=== PATIENT | female | born 1935 | race Caucasian/White ===

== ENCOUNTER → 2018-08-18 | Outpatient (CLI) | payer MEDICARE, OTHER ==
--- NOTE | 2018-09-02 13:06 | RAD ---
DATE: August 18, 2018 EXAM: MAMMO GAYLA SCREENING BILATERAL HISTORY: Screening study. COMPARISON: None. Previous mammograms are not available. Therefore, this is considered a new baseline study. This study was interpreted with the benefit of Computerized Aided Detection (CAD). 2-D digital mammographic views of both breasts were performed in the CC and MLO projections. 3-D digital tomosynthesis images of both breasts were performed in the CC and MLO projections and reviewed on a computer workstation. FINDINGS: Breast Density: SCATTERED The breast parenchyma shows scattered fibroglandular densities. Breast parenchyma level B.. Bilateral breast nodularity is evident. However, more prominent focal nodular density this is seen within the upper lateral aspect of the right breast. Recommend focal compression views of this area in the CC and MLO projections and a digital 2-D 90 degrees medial lateral view of the right breast for further evaluation. If this finding persists, then right breast sonography may be needed. No clustering of pleomorphic microcalcifications are evident on either side. Benign-appearing axillary lymph nodes are seen bilaterally. IMPRESSION: Prominent nodular density of the right breast. Additional imaging. BI-RADS CATEGORY: 0 INCOMPLETE: NEEDS ADDITIONAL IMAGING EVALUATION AND/OR PRIOR MAMMOGRAMS FOR COMPARISON. RECOMMENDED FOLLOW-UP: ADD ADDITIONAL IMAGING PQRS compliance statement: Patient information was entered into a reminder system with a target due date now for the next mammogram. Mammography is a sensitive method for finding small breast cancers, but it does not detect them all and is not a substitute for careful clinical examination. A negative mammogram does not negate a clinically suspicious finding and should not result in delay in biopsying a clinically suspicious abnormality. "Our facility is accredited by the [employer] Mammography [employer]." The patient's breast density may affect the ability of mammography to detect breast cancer. There are 4 categories of breast density, A, B, C and D. Breast density A means that most of the breast tissue is replaced with adipose tissue and therefore is not dense. Breast density B means that the breast tissue is mildly dense and scattered. Breast density C means that the breast tissue is heterogeneously dense. Breast density D means that the breast tissue is very dense. Breast densities especially C and D may decrease the sensitivity of mammography to detect breast cancer. Therefore, the patient may benefit from 3-D breast mammography (3D breast tomography) as a part of their screening mammogram. Insurance may or may not pay for this additional imaging. The patient's breast density based on today's mammogram is category B.
== END | disposition home or self-care (01) ==
LOC: MAMMO 08:36
PROVIDERS: ATTEND Family Medicine
DX: Z12.31 Encounter for screening mammogram for malignant neoplasm of breast (principal)
CPT/HCPCS: 77063; 77067

== ENCOUNTER → 2018-08-31 | Outpatient (CLI) | payer MEDICARE ==
--- NOTE | 2018-08-31 15:16 | KCIC ---
HAND BILAT 3V History: Polyarthralgia, cannot straighten fingers.. No trauma. Comparison: None are available Three-view left hand Severe destructive changes at the second DIP joint, appear chronic. There is severe loss of the joint with central or marginal erosive change and marginal osteophytes. Moderate degenerative type changes are seen at the third and fifth DIP joints. Mild at the first IP joint. No evidence of aggressive bone destruction.. 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 3 view right hand Severe degenerative changes at the second, third and fifth DIP joints with marginal spurring. Milder degenerative changes at the first IP joint. No aggressive bone destruction or dislocation. IMPRESSION: Degenerative changes, compatible with osteoarthritis, particularly at the DIP joints bilaterally, as well as at the triscaphe of the left wrist. Electronically signed by: Yang Ontiveros MD (08/31/2018 3:12 PM) [facility]
== END | disposition home or self-care (01) ==
LOC: KCIC 14:04
PROVIDERS: ATTEND Internal Medicine Rheumatology
DX: M19.042 Primary osteoarthritis, left hand (principal); M19.041 Primary osteoarthritis, right hand; M25.742 Osteophyte, left hand
CPT/HCPCS: 73130

== ENCOUNTER → 2018-09-16 | Outpatient (CLI) | payer MEDICARE ==
--- NOTE | 2018-09-16 14:25 | RAD ---
DATE: 09/16/2018 EXAM: DIGITAL DIAGNOSTIC RT, BREAST RIGHT HISTORY: Suspicious screening study COMPARISON: 08/18/2018 This study was interpreted with the benefit of Computerized Aided Detection (CAD). Breast Density: SCATTERED The breast parenchyma shows scattered fibroglandular densities. Breast parenchyma level B. FINDINGS: Additional views of the right breast were obtained including spot compression and straight mediolateral views. The fibroglandular pattern in both breasts is somewhat nodular in character. There is more focal nodularity seen posterolaterally in the right breast at approximately 8-9:00 location. Prior outside mammograms dated 10/09/2016, 07/01/2015 and 10/25/2013 are now available for comparison. Similar nodular densities were present in the right breast on the previous studies. Right breast ultrasound, 08/18/2018: A target ultrasound exam of the lateral aspect of the right breast was performed. Normal heterogeneous fibroglandular shadows are present. No mass is identified. IMPRESSION: 1. Stable right mammograms without evidence of malignancy. 2. The targeted ultrasound exam of the lateral right breast reveal no abnormality. BI-RADS CATEGORY: 2 BENIGN FINDING(S) RECOMMENDED FOLLOW-UP: 12M 12 MONTH FOLLOW-UP PQRS compliance statement: Patient information was entered into a reminder system with a target due date for the next mammogram. Mammography is a sensitive method for finding small breast cancers, but it does not detect them all and is not a substitute for careful clinical examination. A negative mammogram does not negate a clinically suspicious finding and should not result in delay in biopsying a clinically suspicious abnormality. "Our facility is accredited by the [employer] Mammography [employer]."
== END | disposition home or self-care (01) ==
LOC: MAMMO 13:00
PROVIDERS: ATTEND Family Medicine
DX: R92.8 Other abnormal and inconclusive findings on diagnostic imaging of breast (principal)
CPT/HCPCS: 76641; 77065

== ENCOUNTER → 2019-08-24 | Outpatient (CLI) | payer MEDICARE ==
--- NOTE | 2019-08-25 11:56 | RAD ---
DATE: August 24, 2019 EXAM: MAMMO GAYLA SCREENING BILATERAL HISTORY: Screening study. COMPARISON: 2016 and 2018 This study was interpreted with the benefit of Computerized Aided Detection (CAD). FINDINGS: Breast Density: SCATTERED The breast parenchyma shows scattered fibroglandular densities. Breast parenchyma level B.. There are no dominant suspicious masses, suspicious microcalcifications or evidence of architectural distortion. Bilateral breast nodularity is stable. IMPRESSION: No mammographic indicators for malignancy. BI-RADS CATEGORY: 2 BENIGN FINDING RECOMMENDED FOLLOW-UP: 12M 12 MONTH FOLLOW-UP PQRS compliance statement: Patient information was entered into a reminder system with a target due date August 25, 2020 for the next mammogram. Mammography is a sensitive method for finding small breast cancers, but it does not detect them all and is not a substitute for careful clinical examination. A negative mammogram does not negate a clinically suspicious finding and should not result in delay in biopsying a clinically suspicious abnormality. "Our facility is accredited by the [employer] Mammography [employer]." The patient's breast density may affect the ability of mammography to detect breast cancer. There are 4 categories of breast density, A, B, C and D. Breast density A means that most of the breast tissue is replaced with adipose tissue and therefore is not dense. Breast density B means that the breast tissue is mildly dense and scattered. Breast density C means that the breast tissue is heterogeneously dense. Breast density D means that the breast tissue is very dense. Breast densities especially C and D may decrease the sensitivity of mammography to detect breast cancer. Therefore, the patient may benefit from 3-D breast mammography (3D breast tomography) as a part of their screening mammogram. Insurance may or may not pay for this additional imaging. The patient's breast density based on today's mammogram is category B.
== END | disposition home or self-care (01) ==
LOC: MAMMO 08:04
PROVIDERS: ATTEND Family Medicine
DX: Z12.31 Encounter for screening mammogram for malignant neoplasm of breast (principal)
CPT/HCPCS: 77063; 77067

== ENCOUNTER → 2020-05-26 | Outpatient (CLI) | payer MEDICARE ==
--- NOTE | 2020-05-26 14:03 | RAD ---
MRI Lumbar Spine without contrast History: Low back pain, left leg radiculopathy Technique: Multiplanar, multi sequential noncontrast MR imaging was performed of the lumbar spine. Comparison: None Findings: There is no edema suggestive of recent compression fracture. There is reversal of the lordotic curvature centered at L1-L2. There is very mild posterior subluxation L2 relative to L3, L3 relative to L4, and L4 relative L5, negligible anterior spondylolisthesis L1-L2. Conus terminates at L1-2. There is advanced degenerative disc disease greatest at L3-4 and L4-5 and also anteriorly at L2-3, to lesser degree at L1-2 and L5-S1. Vertebral body stature is overall maintained. There is mild dextroscoliosis centered near L3. Not included on the axial images, there is buckling of the ligamentum flavum and facet degenerative change at T11-12 contributing to fairly severe bilateral neural foramina compromise greater on the left, overall mild narrowing of the spinal canal. L1-L2: There is mild buckling of the ligamentum flavum and facet hypertrophic change. Neural foramina and the spinal canal are adequate. L2-L3: There is minimal bulge. There is mild buckling of the ligamentum flavum and facet hypertrophic change. There is mild narrowing of the far lateral recesses bilaterally. There is mild narrowing of the left neural foramen, right neural foramen adequate. L3-L4: There is disc osteophyte complex and bulge. There is mild buckling of the ligament flavum. There is moderate right greater than left facet degenerative change. There is fairly severe right and moderate to severe left lateral recess stenosis. There is buhf-sg-xerrqjmg narrowing of the central canal. There is severe bilateral neural foramina compromise by disc osteophyte complex and facets with contact of the exiting L3 nerve roots greater on the left. L4-L5: There is minimal disc osteophyte complex. There is left laminectomy defect. There is moderate buckling of the residual right ligamentum flavum. There is moderate facet hypertrophic change greater on the right. There is fairly severe right lateral recess stenosis at location of the descending right L5 nerve root, mild narrowing of the far left lateral recess. Central canal is adequate. There is severe bilateral neural foramina compromise with contact of the exiting L4 nerve roots bilaterally greater on the right, narrowing by disc osteophyte complex and facets. L5-S1: There is severe facet degenerative change bilaterally somewhat greater on the right. There is mild to moderate buckling of the ligamentum flavum. There is moderate to severe narrowing of the lateral recesses bilaterally at location of the descending S1 nerve roots, mild narrowing of the central canal. There is severe bilateral neural foramina compromise by disc osteophyte complex and facets with impingement of the exiting L5 nerve roots greater on the left. Impression: 1. There is advanced degenerative disc disease at L3-4 and L4-5 and anteriorly at L2-3, to a lesser degree at other levels. 2. There is multilevel significant lateral recess stenosis such as bilaterally at L3-4 and L5-S1 and on the right at L4-5, mild narrowing bilaterally at L2-3. There is contact of the descending nerve roots at multiple levels. 3. There is multilevel neural foramina compromise, severe narrowing bilaterally at T11-12, L3-4, L4-5 and L5-S1. 4. There is multilevel facet degenerative change. There is multilevel abnormal alignment as stated. There is mild lumbar dextroscoliosis. Electronically signed by: Sarthak Lilly MD (05/26/2020 2:00 PM) [id number]
== END | disposition home or self-care (01) ==
LOC: MRI 12:30
PROVIDERS: ATTEND Family Medicine
DX: S33.140A Subluxation of L4/L5 lumbar vertebra, initial encounter (principal); M47.817 Spondylosis without myelopathy or radiculopathy, lumbosacral region; M48.07 Spinal stenosis, lumbosacral region; M47.814 Spondylosis without myelopathy or radiculopathy, thoracic region; X58.XXXA Exposure to other specified factors, initial encounter; Y93.89 Activity, other specified; Y92.89 Other specified places as the place of occurrence of the external cause; Y99.8 Other external cause status
CPT/HCPCS: 72148

== ENCOUNTER → 2020-07-04 | Outpatient (CLI) | payer MEDICARE ==
[~2020-07-04] MED LIST: REGADENOSON 0.4 MG/5 ML DISP.SYRIN. IV ONE
--- NOTE | 2020-07-04 17:31 | CARD ---
MR#: [id number] Date of Study: 07/04/2020 Ordering Physician: RUTHIE VALDEZ, Referring Physician: RUTHIE VALDEZ, Tech: Stephanie Horne APPROVED REPORT EXAM: Two-dimensional and M-mode echocardiogram with Doppler and color Doppler. Other Information Quality : AverageHR: 59bpm INDICATION Dyspnea 2D DIMENSIONS RVDd2.4 (2.9-3.5cm)Left Atrium(2D)2.9 (1.6-4.0cm) IVSd1.0 (0.7-1.1cm)Aortic Root(2D)3.0 (2.0-3.7cm) LVDd5.0 (3.9-5.9cm)LVOT Diameter2.1 (1.8-2.4cm) PWd1.0 (0.7-1.1cm)LVDs3.2 (2.5-4.0cm) FS (%) 34.7 %SV73.8 ml Aortic Valve AoV Peak Andrew.120.2cm/sAoV VTI28.2cm AO Peak GR.5.8mmHgLVOT Peak Andrew.87.3cm/s LVOT VTI 21.98cmAO Mean GR.4mmHg BONY (VMAX)1.28zo3IFT (VTI)2.68cm2 Mitral Valve MV E Msiqnvcz07.8cm/sMV DECEL WXAM547en MV A Wdqmytzj48.2cm/sMV E Mean Gr.2mmHg MV YWP93vfK/A Ratio0.6 MVA (PHT)3.18cm2 TDI E/Lateral E'10.1E/Medial E'9.6 Pulmonary Valve PV Peak Cyodrmts35.9cm/sPV Peak Grad.3mmHg Tricuspid Valve TR P. Awlakdjm912qk/sRAP WOXCQFNS8goDd TR Peak Gr.94zzExKOXJ15vbZm Pulmonary Vein S1 Wfeuacsq47.7cm/sD2 Jwwnnxfo99.5cm/s PVa czontrkz920krbx LEFT VENTRICLE The left ventricle is normal size. There is normal left ventricular wall thickness. The left ventricu lar systolic function is normal and the ejection fraction is within normal range. The Ejection Fracti on is 50-55%. There is normal LV segmental wall motion. Transmitral Doppler flow pattern is Grade I-a bnormal relaxation pattern. RIGHT VENTRICLE The right ventricle is normal size. There is normal right ventricular wall thickness. The right ventr icular systolic function is normal. ATRIA The left atrium size is normal. The right atrium size is normal. The interatrial septum is intact wit h no evidence for an atrial septal defect or patent foramen ovale as noted on 2-D or Doppler imaging. AORTIC VALVE The aortic valve is thickened but opens well. Doppler and Color Flow revealed trace aortic regurgitat ion. There is no significant aortic valvular stenosis. MITRAL VALVE The mitral valve is normal in structure and function. There is no evidence of mitral valve prolapse. There is no mitral valve stenosis. Doppler and Color-flow revealed trace mitral regurgitation. TRICUSPID VALVE The tricuspid valve is normal in structure and function. Doppler and Color Flow revealed trace tricus pid regurgitation with an estimated PAP of 24 mmHg. There is no tricuspid valve stenosis. PULMONIC VALVE The pulmonic valve is not well visualized. Doppler and Color Flow revealed trace pulmonic valvular re gurgitation. GREAT VESSELS The aortic root is normal in size. The ascending aorta is normal in size. The IVC is normal in size a nd collapses >50% with inspiration. PERICARDIAL EFFUSION There is no evidence of significant pericardial effusion. Critical Notification Critical Value: No <Conclusion> The left ventricle is normal size. The left ventricular systolic function is normal and the ejection fraction is within normal range. The Ejection Fraction is 50-55%. Doppler and Color Flow revealed trace aortic regurgitation. There is no significant aortic valvular stenosis. Doppler and Color-flow revealed trace mitral regurgitation. Doppler and Color Flow revealed trace tricuspid regurgitation with an estimated PAP of 24 mmHg. Signed by : Arnold Hdz MD Electronically Approved : 07/04/2020 17:31:06
--- NOTE | 2020-07-04 17:57 | RAD ---
MR#: [id number] Date of Study: 07/04/2020 Ordering Physician: RUTHIE VALDEZ Referring Physician: JEANETTE SALAS Tech: RT Mohini Caldera) (N) APPROVED REPORT Test Type: Pharmacological Stress Nurse/Tech: Kinjal Sanchez RN Test Indications: Dyspnea on exertion Cardiac History: No known cardiac Medications: See Electronic Medical Record Medical History: See Electronic Medical Record Resting ECG: SR Resting Heart Rate: 74 bpm Resting Blood Pressure: 109/69mmHg Pretest Chest Pain: None Nurse/Tech Notes Lungs CTA, S1S2 Consent: The procedure was explained to the patient in lay terms. Informed consent was witnessed. Ulysses eout was entered into [employer]. History and Stress Test performed by RT Werner (Rashmi) (N) Pharm. Details Pharmacologic stress testing was performed using 0.4mg per 5ml of regadenoson given intravenously ove r 7-10 seconds. Stress Symptoms No chest pain or symptoms. POST EXERCISE Reason for Termination: Infusion complete Max HR: 102 bpm Max Blood Pressure: 148/55mmHg Blood Pressure response to exercise: Normal blood pressure response during stress. Heart Rate response to exercise: normal response Chest Pain: No. Arrhythmia: No. ST Change: No. INTERPRETATION Stress EKG Conclusion: The resting EKG shows a sinus rhythm with mild nonspecific ST-T wave changes. The stress EKG shows no significant changes from baseline. No EKG evidence of stress-induced ischemia. Imaging Protocol IMAGE PROTOCOL: Rest Tc-99m/stress Tc-99m 1 day Rest: Stress: Viability: Radiopharm.Tc99m DeosftgfnUd76c Sestamibi Rcbu04pFv 32mCi Duration 15min. 15min. Img Date 07/04/2020 07/04/2020 Inj-Img Qnpq04buq. 60min. Rest Admin Site:IV - Left HandAdministrator:RT Werner (Rashmi)(N) Stress Admin Site: IV - Left HandAdministrator: RT Werner (R)(N) STRESS DATA End Diast. Vol.55.0mlLVEDV index BSA30.0ml End Syst. Vol.13.0mlLVESV index BSA7.0ml Myocardial Mass96.0gEject. Vhpychsq04.0% Stress Scores Regional WT1.00Summed WT4.00 Regional WM0.00Summed WM1.00 LV Perfusion The stress scans showed no significant defects. The rest scans showed no significant defects. Nuclear imaging shows no reversible ischemia or infarct. Wall Motion Left ventricular systolic function is normal with no wall motion abnormalities and an ejection fracti on of greater than 70%. LV Perf. Quant 17 Seg. SSS0.00 17 Seg. SRS3.00 17 Seg. SDS0.00 Stress Defect Extent (% LAD)0.00Rest Defect Extent (% LAD)11.90Rev. Defect Extent (% LAD)0.00 Stress Defect Extent (% LCX) 0.00Rest Defect Extent (% LCX)8.80Rev. Defect Extent (% LCX)0.00 Stress Defect Extent (% RCA)0.00Rest Defect Extent (% RCA)0.00Rev. Defect Extent (% RCA)0.00 Stress Defect Extent (% RADHA)0.00Rest Defect Extent (% RADHA)5.70Rev. Defect Extent (% RADHA)0.00 Conclusion 1. No EKG evidence of stress-induced ischemia. 2. Nuclear imaging shows no reversible ischemia or infarct. 3. Normal left ventricular systolic function with no regional wall motion abnormalities and an ejecti on fraction of greater than 70%. 4. Low risk Lexiscan nuclear stress test. Signed by : Arnold Hdz MD Electronically Approved : 07/04/2020 17:57:22
== END ==
LOC: NM 08:19
PROVIDERS: ATTEND Internal Medicine Cardiovascular Disease
DX: R06.00 Dyspnea, unspecified (principal)
CPT/HCPCS: 78452; 93017; 93306; A9500; J2785

== ENCOUNTER → 2020-08-28 | Outpatient (CLI) | payer MEDICARE ==
--- NOTE | 2020-08-28 17:23 | RAD ---
BILATERAL SCREENING MAMMOGRAM, 3-D History: Routine screening. Comparison: 11/04/2013, 07/01/2015, 10/09/2016, 08/18/2018, 08/24/2019. Technique: MLO and CC digital tomosynthesis (3D) images obtained. Radiologist reviewed these images on dedicated workstation. Findings: Breast Tissue Density B : There are scattered areas of fibroglandular density. There are no dominant masses, suspicious microcalcifications, or architectural distortion. IMPRESSION: No mammographic evidence of malignancy. Recommend routine screening. BI-RADS category 1: Negative. The images were reviewed with computer-aided detection. Patient information is entered into reminder system with a target due date for the next screening mammogram. Mammography is the most sensitive method for finding small breast cancers, but it does not detect them all and is not a substitute for careful clinical examination. A negative mammogram does not negate a clinically suspicious finding and should not result in delay in biopsying a clinically suspicious abnormality. "Our facility is accredited by the [employer] Mammography Program." Electronically signed by: Navin Velez MD (08/28/2020 5:20 PM) [email or web address]
== END ==
LOC: MAMMO 13:47
PROVIDERS: ATTEND Family Medicine
DX: Z12.31 Encounter for screening mammogram for malignant neoplasm of breast (principal)
CPT/HCPCS: 77063; 77067

== ENCOUNTER → 2021-08-29 | Outpatient (CLI) | payer MEDICARE ==
--- NOTE | 2021-08-29 14:41 | RAD ---
Bilateral digital screening 2-D and 3-D (digital breast tomosynthesis) mammogram: Reason for examination: Routine screening. Comparison: Mammograms from 08/28/2020 and 08/24/2019. Interpretation was made with the benefit of CAD. FINDINGS: Breast density: Category B. There are scattered areas of fibroglandular density. No suspicious breast mass, malignant appearing calcifications, or architectural distortion is seen. T here is a 7 mm group of rounded and punctate calcifications in the 6:00 position left breast at far p osterior depth. This has not changed significantly for one year. Some of these were present on the ma mmogram from 2 years ago. These have a probably benign appearance and can be followed on annual mammo grams. IMPRESSION: No evidence of malignancy. Assessment: BI-RADS 2. Benign findings. Recommendation: Routine screening mammograms. The patient will receive a letter with the results in the mail. Patient information will be entered i nto the mammography reminder system with a target recall date for the next mammogram. A reminder trent er will be generated. Electronically signed by: Vianca Collado MD (08/29/2021 2:39 PM) [id number]
== END ==
LOC: MAMMO 09:45
PROVIDERS: ATTEND Family Medicine
DX: Z12.31 Encounter for screening mammogram for malignant neoplasm of breast (principal)
CPT/HCPCS: 77063; 77067

== ENCOUNTER → 2021-12-12 | Outpatient (CLI) | payer MEDICARE ==
--- NOTE | 2021-12-12 17:31 | KCIC ---
Exam performed: 2 views of the chest. Indication: Reason: COUGH / Spl. Instructions: PT DENIES COUGH/STATES SHORT OF AIR POST COVID IN DECE MBER / History: Date of Service: 12/12/2021 4:20 PM. Comparison : None available. Findings: PA and lateral radiographs of the chest reveal a normal cardiomediastinal contour. The lungs are mark r. No pleural fluid is seen. The visualized osseous structures are unremarkable. Impression: No acute cardiopulmonary process seen. Electronically signed by: Marialuisa Hernandez MD (12/12/2021 5:28 PM) [facility]
== END ==
LOC: KCIC 16:16
PROVIDERS: ATTEND Family Medicine
DX: R05.9 Cough, unspecified (principal)
CPT/HCPCS: 71046